=== PATIENT | male | born 1980 | race Two or more races ===

== ENCOUNTER 2023-08-20 10:15 | Outpatient (CLI) | payer OTHER | END 2023-08-20 10:33 | disposition home or self-care (01) | LOC: SONOGRAMA 10:15 | PROVIDERS: ATTEND Specialist | DX: R22.0 Localized swelling, mass and lump, head (principal) ==

== ENCOUNTER 2023-09-09 05:16 | Day surgery (SDC) | payer OTHER ==
[2023-08-29 08:28] LABS: HEMATOCRIT 43.5 % (39.0-48.0); MEAN CELL VOLUME 88.4 fL (80.0-100.00); MEAN CORPUSCULAR HEMOGLOBIN 30.5 pg (27.00-32.0); MEAN CORPUSCULAR HGB CONC 34.5 g/dl (32.0-36.0); PLATELET COUNT 346 K/uL (150-450); RED BLOOD COUNT 4.92 M/uL (4.00-6.00); RED CELL DISTRIBUTION WIDTH 13.9 % (11.5-14.5)
[2023-08-29 08:37] LABS: PH,URINE 6.5 (5.0-8.0); URINE APPEARANCE Clear; URINE BILIRRUBIN Negative (NEGATIVE); URINE BLOOD Negative; URINE COLOR Yellow; URINE GLUCOSE Negative (NEGATIVE); URINE LEUKOCYTE Negative; URINE NITRATE Negative; URINE PROTEIN Negative (NEGATIVE); URINE UROBILINOGEN 0.2 E.U./dl
[2023-08-29 08:47] LABS: URINE BACTERIA 2.5 uL (0.0-1933); URINE RBC 1.8 uL (0.0-20.8); URINE WBC 0.3 uL (0.0-23.2)
[2023-08-29 08:47] LABS: INR < 0.93; PROTHROMBIN TIME 9.8 SECONDS (9.0-11.5)
[2023-08-29 08:49] LABS: ALBUMIN 4.4 gm/dL (3.4-5.0); BILIRUBIN TOTAL 0.9 mg/dL (0.3-1.2); CALCIUM 10.3 mg/dL (8.5-10.1); CREATININE SERUM 1.11 mg/dL (0.70-1.30); GFR 72.3; GLOBULINA 3.3 G/DL (2.4-3.5); POTASSIUM 4.73 mEq/L (3.5-5.1); TOTAL PROTEIN 7.7 gm/dL (6.4-8.2)
[2023-09-09] MEDS ORDERED: CEFAZOLIN SODIUM 1,000 MG VIAL ONE ×2 (08:28→11:03)
[2023-09-09] MEDS ORDERED: LIDOCAINE HCL 1% 200MG/20ML VIAL IJ ONE ×2 (09:19→10:15)
[2023-09-09] MEDS ORDERED: LIDOCAINE HCL 1%/Epi 20ML VIAL IJ ONE ×2 (09:19→10:15)
[2023-09-09] MEDS ORDERED: CEFAZOLIN SODIUM 1,000 MG VIAL IV ONE (10:15)
[2023-09-09] MEDS ORDERED: CEFAZOLIN SODIUM 1,000 MG VIAL IV SCH (10:45)
== END 2023-09-09 13:00 | disposition home or self-care (01) ==
LOC: CIR.AMB 05:16
PROVIDERS: ATTEND Specialist
DX: D21.0 Benign neoplasm of connective and other soft tissue of head, face and neck (principal); L72.0 Epidermal cyst

== ENCOUNTER 2023-11-27 09:26 | Day surgery (SDC) | payer OTHER ==
[2023-11-20 12:43] LABS: HEMATOCRIT 43.4 % (39.0-48.0); HEMOGLOBIN 14.7 g/dL (13-16.00); MEAN CELL VOLUME 90.4 fL (80.0-100.00); MEAN CORPUSCULAR HEMOGLOBIN 30.7 pg (27.00-32.0); MEAN CORPUSCULAR HGB CONC 33.9 g/dl (32.0-36.0); PLATELET COUNT 331 K/uL (150-450); RED CELL DISTRIBUTION WIDTH 13.9 % (11.5-14.5)
[2023-11-20 12:49] LABS: URINE APPEARANCE Clear; URINE BILIRRUBIN Negative (NEGATIVE); URINE BLOOD Negative; URINE COLOR Yellow; URINE GLUCOSE Negative (NEGATIVE); URINE LEUKOCYTE Negative; URINE NITRATE Negative; URINE PROTEIN Negative (NEGATIVE); URINE UROBILINOGEN 0.2 E.U./dl
[2023-11-20 12:51] LABS: URINE RBC 5.3 uL (0.0-20.8)
[2023-11-20 12:54] LABS: URINE BACTERIA 1.2 uL (0.0-1933); URINE EPITHELIAL CELLS 0.6 uL (0.0-38.8); URINE WBC 0.7 uL (0.0-23.2)
[2023-11-20 13:09] LABS: INR < 0.93; PARTIAL THROMBOPLASTIN TIME 30.5 SECONDS (22.0-34.0); PROTHROMBIN TIME 9.8 SECONDS (9.0-11.5)
[2023-11-20 13:31] LABS: ALBUMIN 4.2 gm/dL (3.4-5.0); BILIRUBIN TOTAL 0.75 mg/dL (0.3-1.2); CALCIUM 10.4 mg/dL (8.5-10.1); CREATININE SERUM 1.05 mg/dL (0.70-1.30); GFR 76.73; GLOBULINA 3.5 G/DL (2.4-3.5); POTASSIUM 4.61 mEq/L (3.5-5.1); TOTAL PROTEIN 7.7 gm/dL (6.4-8.2)
[2023-11-27] MEDS ORDERED: CEFTRIAXONE SODIUM 2,000 MG VIAL ONE (11:43)
[2023-11-27] MEDS ORDERED: METRONIDAZOLE/SODIUM CHLORIDE 500 MG/100 ML PIGGYBACK IV ONE (11:43)
[2023-11-27] MEDS ORDERED: DIBUCAINE 30 GM TUBE ONE (12:29)
[2023-11-27] MEDS ORDERED: HEMOSTATIC MATRIX 1 KIT KIT TOP ONE (12:29)
[2023-11-27] MEDS ORDERED: BUPIVACAINE HCL/Mpf 0.5% 10ML VIAL ONE (12:29)
[2023-11-27] MEDS ORDERED: LIDOCAINE HCL 1%/EPINEPHRINE 20ML VIAL IJ ONE (12:29)
[2023-11-27] MEDS ORDERED: POVIDONE-IODINE 118 ML BOTT TOP ONE (12:31)
[2023-11-27] MEDS ORDERED: POVIDONE-IODINE 118 ML BOTT TOP SCH (13:15)
[2023-11-27] MEDS ORDERED: LIDOCAINE HCL 1%/EPINEPHRINE 20ML VIAL IJ SCH (13:15)
[2023-11-27] MEDS ORDERED: BUPIVACAINE HCL 30 ML VIAL IJ SCH (13:15)
[2023-11-27] MEDS ORDERED: CEFTRIAXONE SODIUM 2,000 MG VIAL IV SCH (13:15)
[2023-11-27] MEDS ORDERED: HEMOSTATIC MATRIX 1 KIT KIT TOP SCH (13:15)
[2023-11-27] MEDS ORDERED: METRONIDAZOLE/SODIUM CHLORIDE 500 MG/100 ML PIGGYBACK IV SCH (13:15)
[2023-11-27] MEDS ORDERED: DIBUCAINE 30 GM TUBE RECTAL SCH (13:15)
[2023-11-27] MEDS ORDERED: OXYC1TAB9 PO (13:41)
[2023-11-27] MEDS ORDERED: TAMSULOSIN HCL 0.4 MG CAP PO ONE ×2 (13:45→16:15)
== END 2023-11-27 18:30 | disposition home or self-care (01) ==
LOC: CIR.AMB 09:26
PROVIDERS: ATTEND Surgery
DX: K60.3 Anal fistula (principal); K62.89 Other specified diseases of anus and rectum; J45.909 Unspecified asthma, uncomplicated

== ENCOUNTER 2024-07-15 05:36 | Day surgery (SDC) | payer OTHER ==
[2024-07-06 11:19] LABS: HEMOGLOBIN 14.9 g/dL (13-16.00); MEAN CELL VOLUME 90.7 fL (80.0-100.00); MEAN CORPUSCULAR HEMOGLOBIN 31.4 pg (27.00-32.0); MEAN CORPUSCULAR HGB CONC 34.6 g/dl (32.0-36.0); PLATELET COUNT 360 K/uL (150-450); RED BLOOD COUNT 4.74 M/uL (4.00-6.00); RED CELL DISTRIBUTION WIDTH 13.7 % (11.5-14.5)
[2024-07-06 11:21] LABS: PH,URINE 6.5 (5.0-8.0); URINE APPEARANCE Clear; URINE BILIRRUBIN Negative (NEGATIVE); URINE BLOOD Negative; URINE COLOR Yellow; URINE GLUCOSE Negative (NEGATIVE); URINE KETONE Negative (NEGATIVE); URINE LEUKOCYTE Negative; URINE NITRATE Negative; URINE PROTEIN Negative (NEGATIVE); URINE UROBILINOGEN 0.2 E.U./dl
[2024-07-06 11:44] LABS: INR 0.94; PARTIAL THROMBOPLASTIN TIME 29.3 SECONDS (22.0-34.0); PROTHROMBIN TIME 10.3 SECONDS (9.0-11.5)
[2024-07-06 11:52] LABS: URINE BACTERIA 1.2 uL (0.0-1933); URINE EPITHELIAL CELLS 0.3 uL (0.0-38.8); URINE RBC 0.5 uL (0.0-20.8); URINE WBC 0.3 uL (0.0-23.2)
[2024-07-06 12:00] LABS: ALBUMIN 4.1 gm/dL (3.4-5.0); BILIRUBIN TOTAL 1.01 mg/dL (0.3-1.2); CALCIUM 9.2 mg/dL (8.5-10.1); GFR 81.17; GLOBULINA 3.1 G/DL (2.4-3.5); POTASSIUM 4.43 mEq/L (3.5-5.1); TOTAL PROTEIN 7.2 gm/dL (6.4-8.2)
[2024-07-06 12:40] VITALS: BP 137/83
[~2024-07-15] VITALS: Ht 172.7 cm; Wt 106.6 kg
[~2024-07-15 05:36] MED LIST: OXYC1TAB9 PO
[2024-07-15] MEDS ORDERED: HEMOSTATIC MATRIX 1 KIT KIT TOP ONE (08:46)
[2024-07-15] MEDS ORDERED: CEFTRIAXONE SODIUM 2,000 MG VIAL ONE (08:46)
[2024-07-15] MEDS ORDERED: METRONIDAZOLE/SODIUM CHLORIDE 500 MG/100 ML PIGGYBACK IV ONE (08:46)
[2024-07-15] MEDS ORDERED: DIBUCAINE 30 GM TUBE ONE (08:46)
[2024-07-15] MEDS ORDERED: POVIDONE-IODINE 118 ML BOTT TOP ONE (08:46)
[2024-07-15] MEDS ORDERED: TAMSULOSIN HCL 0.4 MG CAP PO ONE ×2 (10:15→11:52)
[2024-07-15] MEDS ORDERED: LIDOCAINE HCL 1% 20 ML VIAL IJ ONE (10:30)
[2024-07-15] MEDS ORDERED: OXYCODONE HCL5 MG PO (10:57)
== END 2024-07-15 14:00 | disposition home or self-care (01) ==
LOC: CIR.AMB 05:36
PROVIDERS: ATTEND Surgery
DX: K60.321 Anal fistula, complex, initial (principal); K62.89 Other specified diseases of anus and rectum; J44.9 Chronic obstructive pulmonary disease, unspecified; H52.10 Myopia, unspecified eye